=== PATIENT | male | born 1990 | race Caucasian/White ===

== ENCOUNTER 2018-12-09 11:56 | Emergency (ER) | payer OTHER ==
[~2018-12-09] VITALS: Wt 90.0 kg
[2018-12-09 11:58] VITALS: BP 149/85; PULSE 66; RESP 20
[2018-12-09] MEDS ORDERED: KETOROLAC 60 MG INJ IM STA (12:29)
[2018-12-09] MEDS ORDERED: DIAZEPAM 5 MG TAB PO ONE (12:30)
[2018-12-09] MEDS ORDERED: DEXAMETHASONE 10 MG/ML 1 ML INJ IM ONE (12:30)
[2018-12-09] MEDS ORDERED: CYCL10TA7 PO (12:33)
[2018-12-09] MEDS ORDERED: NAPR-985 PO (12:33)
[2018-12-09] MEDS ORDERED: HYDR-4011 PO (12:33)
--- NOTE | 2018-12-09 12:53 | ERD ---
ER Documentation Chief Complaint Chief Complaint lower back pain for a few days while lifting at work HPI 28-year-old male presenting with lower back pain for a few days. Patient states that started when he was lifting heavy items at work. He states he took some Tylenol with mild alleviation however his spasms have continued. He denies any changes in urination or bowel movement. Denies any numbness or tingling down his legs. Denies medical problems. Allergy to penicillin. Surgical history denies. Social history smokes marijuana daily. ROS All systems reviewed and are negative except as per history of present illness. Medications Home Meds Active Scripts Naproxen* (Naprosyn*) 500 Mg Tablet, 500 MG PO BID PRN for PAIN AND/OR INFLAMMATION, #30 TAB Prov:KRISTIAN DEL CID PA-C 12/09/18 Cyclobenzaprine Hcl* (Cyclobenzaprine Hcl*) 10 Mg Tablet, 10 MG PO TID, #15 TAB Prov:KRISTIAN DEL CID PA-C 12/09/18 Hydrocodone/Acetaminophen (Elkins 5-325 Tablet) 1 Each Tablet, 1 TAB PO Q6H PRN for PAIN, #7 TAB Prov:KRISTIAN DEL CID PA-C 12/09/18 Allergies Allergies: Coded Allergies: Penicillins (Verified Allergy, Unknown, 12/09/18) FmHx Family History: No diabetes, No coronary disease, No other Physical Exam Vitals Vital Signs Date Temp Pulse Resp B/P (MAP) Pulse Ox O2 O2 Flow FiO2 Time Delivery Rate 12/09/18 98.5 66 20 149/85 99 11:58 (106) Physical Exam GENERAL: The patient is well-appearing, well-nourished, in no acute distress CHEST: Clear to auscultation bilaterally. There are no rales, wheezes or rhonchi. HEART: Regular rate and rhythm. No murmurs, clicks, rubs or gallops. No S3 or S4. ABDOMEN:Soft, nontender and nondistended. Good bowel sounds. No rebound or guarding. No gross peritonitis. No gross organomegaly or masses. BACK: No midline or flank tenderness. Tender to palpation over paraspinous muscles. EXTREMITIES: Equal pulses bilaterally. There is no peripheral clubbing, cyanosis or edema. No focal swelling or erythema. Full range of motion. Grossly neurovascularly intact. NEUROLOGIC: Alert and oriented. Cranial nerves II through XII intact. Motor strength in all 4 extremities with 5 out of 5 strength. Sensation grossly intact. Normal speech and gait. SKIN: There is no apparent rash or petechiae. The skin is warm and dry. Results 24 hrs Current Medications Medications Dose Sig/Annemarie Start Time Status Last (Trade) Ordered Route PRN Stop Time Admin Dose Reason Admin Ketorolac 60 mg ONCE STAT 12/09/18 DC 12/09/18 Tromethamine IM 12:29 12:41 (Toradol) 12/09/18 12:30 10 mg ONCE ONCE 12/09/18 DC 12/09/18 Dexamethasone IM 12:30 12:41 (Decadron) 12/09/18 12:31 Diazepam 5 mg ONCE ONCE 12/09/18 DC 12/09/18 (Valium) PO 12:30 12:41 12/09/18 12:31 Procedures/MDM ER course: Toradol, Decadron and Valium given ED. MDM: 28-year-old male presenting with back pain. Patient's pain is likely associated musculoskeletal strain. I have low suspicion for acute fracture dislocation. I have considered cauda equina, discitis or epidural abscess however have low suspicion. Patient is discharged with strict ER precautions and told to follow-up with primary care within 1-2 days for close evaluation. All questions answered at discharge Departure Diagnosis: Primary Impression: Back pain Condition: Stable Patient Instructions: Back Pain (Acute Or Chronic) Referrals: [facility] YOU HAVE RECEIVED A MEDICAL SCREENING EXAM AND THE RESULTS INDICATE THAT YOU DO NOT HAVE A CONDITION THAT REQUIRES URGENT TREATMENT IN THE EMERGENCY DEPARTMENT. FURTHER EVALUATION AND TREATMENT OF YOUR CONDITION CAN WAIT UNTIL YOU ARE SEEN IN YOUR DOCTORS OFFICE WITHIN THE NEXT 1-2 DAYS. IT IS YOUR RESPONSIBILITY TO MAKE AN APPOINTMENT FOR FOLOW-UP CARE. IF YOU HAVE A PRIMARY DOCTOR --you should call your primary doctor and schedule an appointment IF YOU DO NOT HAVE A PRIMARY DOCTOR YOU CAN CALL OUR PHYSICIAN REFERRAL HOTLINE AT IF YOU CAN NOT AFFORD TO SEE A PHYSICIAN YOU CAN CHOSE FROM THE FOLLOWING [facility] [address] [facility]. [facility] [address] [facility]. [facility] [address] [facility]. [facility] [address] [facility]. [facility] [address] [facility]. [facility] [address] Additional Instructions: FOLLOW UP WITH YOUR PRIMARY CARE PHYSICIAN TOMORROW.Return to this facility if you are not improving as expected. KRISTIAN DEL CID PA-C Dec 09, 2018 12:53
== END 2018-12-09 13:17 | disposition home or self-care (01) ==
LOC: FTE 11:56
DX: M54.5 Low back pain (principal)
CPT/HCPCS: 96372; J1100; J1885; Z7502; Z7610